=== PATIENT | male | born 1940 | race Caucasian/White ===

== ENCOUNTER → 2016-07-03 16:23 | Outpatient (CLI) | payer MEDICARE | END | disposition home or self-care (01) | LOC: D.LABREF 16:23 | DX: D50.9 Iron deficiency anemia, unspecified (principal) ==

== ENCOUNTER 2016-07-24 05:04 | Inpatient (IN) | payer MEDICARE ==
[2016-07-23 12:11] LABS: BASOPHILS 0.4 % (0-2); EOSINOPHILS 6.2 % (0-7); HEMATOCRIT 32.4 % (42.0-54.0); HEMOGLOBIN 9.9 g/dL (13.5-17.5); IMMATURE GRANULOCYTES 0.2 % (0-5); LYMPHOCYTES 21.3 % (15-50); MCH 26.5 pg (26.0-34.0); MCHC 30.6 g/dL (31.0-37.0); MCV 86.6 fL (80.0-100.0); MEAN PLATELET VOLUME 8.2 fL (7.4-10.4); MONOCYTES 6.6 % (2-11); NEUTROPHILS 65.3 % (40-80); PLATELET COUNT 198 10x3/uL (130-400); RBC 3.74 10x6/uL (4.20-6.10); RDW 17.8 % (11.5-14.5); WBC 5.6 10x3/uL (4.8-10.8)
[2016-07-23 12:23] LABS: INR 1.09 (0.85-1.17)
[2016-07-23 12:49] LABS: CALC OSMOLALITY 276 mosm/kg (275-300); CALCIUM 10.5 mg/dL (8.5-10.1); CHLORIDE - SERUM 105 mmol/L (98-107); CREATININE - SERUM 0.8 mg/dL (0.6-1.3); GLUCOSE 91 mg/dL (74-106); POTASSIUM - SERUM 4.3 mmol/L (3.5-5.1); SODIUM 140 mmol/L (136-145); UREA NITROGEN 7 mg/dL (7-18); eGFR NON AFRICAN AMERICAN > 90 mL/min (90-120)
[~2016-07-24] VITALS: Ht 175.3 cm; Wt 92.5 kg
[2016-07-24] VITALS (12 sets, daily range): BP systolic 105–148; BP diastolic 62–91; BMI 30.3; BMI 30.2
--- NOTE | ~2016-07-24 | DS ---
PATIENT:FE PERDOMO :38 MEDICAL RECORD: [id number] DISCHARGE SUMMARY ADMISSION DATE: 07/24/16 DISCHARGE DATE: 07/27/16 DATE OF ADMISSION: 07/24/2016 DATE OF DISCHARGE: 07/27/2016 ADMISSION DIAGNOSES: 1. Ascending colon cancer with mets to intra-abdominal lymph nodes. 2. Hypertension. 3. Iron deficiency anemia due to chronic blood loss. DISCHARGE DIAGNOSES: 1. Ascending colon cancer with mets to intra-abdominal lymph nodes. 2. Hypertension. 3. Iron deficiency anemia due to chronic blood loss. PROCEDURE: Hand-assisted laparoscopic right hemicolectomy on 07/24/2016. CONSULTATIONS: None. REPORT OF HOSPITALIZATION: The patient was admitted to hospital after a successful hand-assisted laparoscopic right hemicolectomy. At the time of surgery, the patient was noted to have enlarged lymph nodes and these were removed with the specimen. The patient had a normal postoperative course with no complications. He was eventually able to advance through his diet. At the day of discharge, he was having normal bowel function and was tolerating diet without nausea or vomiting. His incisions were healing well with no signs of erythema and he had no signs of any infection or sepsis. At that point, his pathology report came back showing he had invasive adenocarcinoma of the right colon with 7 of 11 lymph nodes positive for metastatic disease. DISCHARGE INSTRUCTIONS: He will return to clinic or call with any questions or concerns, fevers, chills, nausea, vomiting or worsening abdominal pain. ACTIVITIES: No heavy lifting or straining for 6 weeks postoperatively. FOLLOWUP: In clinic with me in 7-10 days. DISCHARGE MEDICATIONS: Resume home medications with the inclusion of Percocet 10. TRANSINT:[id number] Voice Confirmation ID: [id number] DOCUMENT ID: [id number] RAMO BRADLEY MD CC: [id number] DICTATION DATE: 07/27/16 1104 [employer] PRINTING MACHINIST: 07/28/16 0219 DIS IN 07/27/16 [facility] [address] [place] [id number]
[~2016-07-24 05:04] MED LIST: AMBIEN5 MG PO; CENTRUM SILVER1 TA1 PO; FLOMAX0.4 MG PO; HYZAAR 50-12.51 TAB PO; PERCOCET 10/3251 TA1 PO; XANAX0.5 MG PO; XARELTO20 MG PO; ZESTRIL20 MG PO
[2016-07-24] MEDS ORDERED: ZESTRIL20 MG PO (06:51)
[2016-07-24] MEDS ORDERED: VITAMIN C1000 MG PO (06:52)
[2016-07-24] MEDS ORDERED: BUSPAR5 MG PO (06:53)
[2016-07-24] MEDS ORDERED: FERROUS SULFAT325 MG PO (06:53)
[2016-07-24] MEDS ORDERED: ZOCOR80 MG PO (06:54)
--- NOTE | 2016-07-24 12:50 | NUR ---
PATIENT RESTING QUIETLY. FAMILY IN ROOM.
--- NOTE | 2016-07-24 14:52 | OP ---
PATIENT NAME: FE PERDOMO MEDICAL RECORD: [id number] :38 LOCATION:D.[facility] [id number] ADMISSION DATE:07/24/16 SURGEON: CHARLES BRADLEY MD DATE OF OPERATION: 07/24/2016 PREOPERATIVE DIAGNOSES: 1. Adenocarcinoma of the ascending colon. 2. Iron deficiency anemia. 3. Hypertension. 4. Cardiac arrhythmia with pacemaker in situ. POSTOPERATIVE DIAGNOSES: 1. Adenocarcinoma of the ascending colon. 2. Iron deficiency anemia. 3. Hypertension. 4. Cardiac arrhythmia with pacemaker in situ. PROCEDURE: Hand-assisted laparoscopic right hemicolectomy. SURGEON: Charles Bradley MD. REPORT OF PROCEDURE: The patient's abdomen was prepped and draped in sterile fashion. A cut down was made around the patient's umbilicus and electrocautery was used to dissect through the subcutaneous tissue and into the abdominal cavity. Once in the abdomen, a GelPort was inserted with a 5-mm trocar within it. After insufflation was obtained, then a 5-mm trocar was placed in the epigastrium and another 5-mm trocar was placed in the right subcostal region, both under direct visualization. At this point, we began to palpate the patient's abdomen. I saw no sign of any metastatic lesions throughout the abdominal cavity including the patient's liver and abdominal wall. There were some enlarged lymph nodes present in the right mesocolon. We began our dissection of the white line of Toldt. We took down this white line of Toldt and began to mobilize the colon medially. The colon mass was easily palpable in the right colon. We took down the patient's hepatic flexure and at this point, we had good mobilization of the colon. We then eviscerated the colon out of the wound protector. The distal ileum was transected with a 55 blue load LUDIN stapler and the proximal transverse colon was transected with a 55 blue load LUDIN stapler. We then took down the mesentery with sequential clamp and tie technique using 3-0 silk ties. This incorporated the enlarged lymph nodes which were easily palpable. Once the specimen was completely removed, it was sent off for permanent to the pathology department. A [id number] anastomosis was performed using a 55 blue load LUDIN stapler. The opening of the transverse colon and ileum was then closed with a 30 blue load TA stapler. We then oversewed the staple line using Lemberted 3-0 silk pop-offs. This anastomosis was placed back into the abdominal cavity. We then irrigated out the abdomen thoroughly with normal saline and assured there was no sign of any active bleeding. At this point, the ports and insufflation were then removed. The midline fascia was closed with running #1 loop PDS times 2. The subcutaneous tissues were then irrigated out thoroughly and reapproximated with interrupted 3-0 Vicryl. All the skin incisions were closed with skin laith and dressed appropriately. COMPLICATIONS: None. CONDITION: Stable. OPERATIVE REPORT [id number] FE PERDOMO ANESTHESIA: General endotracheal. BLOOD LOSS: 30 mL. TRANSINT:[id number] Voice Confirmation ID: [id number] DOCUMENT ID: [id number] CHARLES BRADLEY MD at 1452 CC: YURI VERONICA MD and NIKHIL ZHENG MD [id number] DICTATION DATE: 07/24/16 0935 AIRLINE MANAGER: 07/24/16 1015 ADM IN [facility] [address] [place] [address]
--- NOTE | 2016-07-24 19:00 | NUR ---
PATIENT SUPINE IN BED. HOB 20 DEGREES. AAOX4. RR EVEN AND UNLABORED. 0 S/S OF DISTRESS. STATES PAIN IS A 3/10. IV TO LEFT FA PATENT WITH NO REDNESS OR SWELLING. BANDAIDS TO ABD CDI. HOLT SECURED WITH STATLOCK AND DRAINING TO GRAVITY. SCD'S ON. B/A ON. GIRLFRIEND AT BEDSIDE. SRX2. BED LOW. CALL LIGHT WITHIN REACH.
--- NOTE | 2016-07-24 19:00 | NUR ---
PATIENT IN BED WATCHING TV. AAOX4. RR EVEN AND UNLABORED. 0 S/S OF DISTRESS STATES PAIN IS A 3/10. IV TO LEFT FA PATENT WITH NO REDNESS OR SWELLING. DRESSING AND BANDAIDS TO ABD CDI. SCD'S IN ROOM BUT OFF. SRX2. BED LOW. CALL LIGHT WITHIN REACH.
--- NOTE | 2016-07-24 21:50 | NUR ---
NIGHTTIME MEDS GIVEN. PATIENT DENIES NEEDS AT THIS TIME.
--- NOTE | 2016-07-25 03:55 | NUR ---
PATIENT SLEEPING WITH HOME CPAP ON.
[2016-07-25 04:00] VITALS: BP 146/107
[2016-07-25 06:10] LABS: BASOPHILS 0.2 % (0-2); EOSINOPHILS 1.1 % (0-7); HEMATOCRIT 30.2 % (42.0-54.0); HEMOGLOBIN 9.2 g/dL (13.5-17.5); IMMATURE GRANULOCYTES 0.2 % (0-5); LYMPHOCYTES 16.1 % (15-50); MCH 26.4 pg (26.0-34.0); MCHC 30.5 g/dL (31.0-37.0); MCV 86.5 fL (80.0-100.0); MEAN PLATELET VOLUME 9.4 fL (7.4-10.4); MONOCYTES 7.3 % (2-11); NEUTROPHILS 75.1 % (40-80); PLATELET COUNT 236 10x3/uL (130-400); RBC 3.49 10x6/uL (4.20-6.10); RDW 17.2 % (11.5-14.5); WBC 6.5 10x3/uL (4.8-10.8)
--- NOTE | 2016-07-25 06:17 | NUR ---
PATIENT AWAKE IN BED. STATES THAT HIS "PAIN IS FINE WHEN HE IS NOT MOVING." ALSO HE HAS "BELCHED A COUPLE OF TIMES, BUT NOT PASSED GAS." NO NEEDS AT THIS TIME.
[2016-07-25 06:31] LABS: CALC OSMOLALITY 273 mosm/kg (275-300); CALCIUM 10.2 mg/dL (8.5-10.1); CARBON DIOXIDE 27.6 mmol/L (21.0-32.0); CHLORIDE - SERUM 106 mmol/L (98-107); CREATININE - SERUM 0.8 mg/dL (0.6-1.3); GLUCOSE 94 mg/dL (74-106); POTASSIUM - SERUM 4.1 mmol/L (3.5-5.1); SODIUM 138 mmol/L (136-145); UREA NITROGEN 6 mg/dL (7-18); eGFR NON AFRICAN AMERICAN > 90 mL/min (90-120)
--- NOTE | 2016-07-25 08:30 | NUR ---
DENIES NEEDS, ASSESSMENT COMPLETE, BED LOWEST POSITION, HOLT DC'D PER ORDER, MINIMAL DISCOMFORT, URNIAL AT BEDSIDE, CALL LIGHT IN REACH, WILL CONTINUE TO MONITOR
[2016-07-25 08:57] VITALS: BP 144/81
[2016-07-25 12:00] VITALS: BP 153/87
--- NOTE | 2016-07-25 12:45 | NUR ---
SITTING UP IN BED RELAXED. REPORTED JUST VOIDED 100cc CLEAR YELLOW URINE. DENIES NEEDS. NO C/O AT THIS THIS TIME. FAMILY IN ROOM.
[2016-07-25 13:19] VITALS: Ht 175.3 cm; Wt 92.5 kg
--- NOTE | 2016-07-25 15:31 | NUR ---
Patient Name: FE PERDOMO Admission Status: Elective Accout number: [id number] Admission Date: 07-24-2016 : 1940 Admission Diagnosis:MALIGNANT NEOPLASM OF ASCENDING COLON Attending: ROMY Current LOS: 1 Anticipated DC Date: 07-30-2016 Planned Disposition: Home Primary Insurance: [employer] ADV Discharge Planning Comments: CM MET WITH PATIENT REGARDING D/C PLANS AND NEEDS. PATIENT STATED HE LIVES WITH HIS GIRLFRIEND (KRYSTINA) AND SHE WILL BE THE ONE TO DRIVE HIM HOME AT DISCHARGE. PATIENT STATED HE IS INDEPENDENT AND HAS A WALKER AND C-PAP AT HOME. PATIENTS PCP IS DR. VERONICA AND PHARMACY IS [facility] [address]. PATIENT DENIES NEEDS FOR HOME HEALTH AT DISCHARGE AT THIS TIME. CM WILL CONTINUE TO FOLLOW PATIENT WITH D/C NEEDS AND PLANS. PCP [facility] [address]- [phone] KRYSTINA LINCOLN () [phone] Ham Curer: Lianna Guerrero Is the patient Alert and Oriented? Yes 0 * How many steps to enter\exit or inside your home? 0 0 * PCP DR. VERONICA 0 * Pharmacy [facility] [address] 0 * Preadmission Environment Home with Family 0 * ADLs Independent 0 * Equipment CPAP Walker 0 * List name and contact numbers for known caregivers / representatives who currently or will assist patient after discharge: KRYSTINA LINCOLN [phone] * Community resources currently utilized None 0 * Additional services required to return to the preadmission environment? Yes 0 * Can the patient safely return to the preadmission environment? Yes 0 * Has this patient been hospitalized within the prior 30 days at any hospital? No 0 Grand Total: 0
[2016-07-25 17:12] VITALS: BP 146/92
--- NOTE | 2016-07-25 19:30 | NUR ---
PATIENT SPILLED HIS URINAL A SMALL AMOUNT. ASSISTED PATIENT TO BATHROOM WHERE HE BATHED OFF WITH BATH WIPES. LINENS AND GOWN CHANGED. PATIENT NOW BACK IN BED.
[2016-07-25 20:02] VITALS: BP 141/91
--- NOTE | 2016-07-25 21:50 | NUR ---
NIGHTTIME MEDS GIVEN. PATIENT CONCERNED WITH BP BECAUSE HE HASN'T HAD HIS MEDICATION. BP 141/91. ENALOPRIL TO BE GIVEN FOR SYSTOLIC OF >150. EXPLAINED THIS TO PATIENT AND INFORMED HIM THAT I WOULD PASS ON HIS CONCERNS ABOUT HIS BP MEDS TO BE ADDRESSED BY PHYSICIAN IN AM.
--- NOTE | 2016-07-25 23:18 | NUR ---
PATIENT SLEEPING WITH CPAP ON. CALL LIGHT WITHIN REACH.
[2016-07-25 23:48] VITALS: BP 103/60
[2016-07-26 04:00] VITALS: BP 146/83
[2016-07-26 05:28] LABS: BASOPHILS 0.4 % (0-2); EOSINOPHILS 2.9 % (0-7); HEMOGLOBIN 9.5 g/dL (13.5-17.5); IMMATURE GRANULOCYTES 0.4 % (0-5); LYMPHOCYTES 20.2 % (15-50); MCH 25.5 pg (26.0-34.0); MCHC 29.7 g/dL (31.0-37.0); MEAN PLATELET VOLUME 9.3 fL (7.4-10.4); MONOCYTES 9.3 % (2-11); NEUTROPHILS 66.8 % (40-80); PLATELET COUNT 228 10x3/uL (130-400); RBC 3.72 10x6/uL (4.20-6.10); RDW 16.7 % (11.5-14.5); WBC 4.8 10x3/uL (4.8-10.8)
--- NOTE | 2016-07-26 05:32 | NUR ---
PATIENT STILL SLEEPING WITH NO DISTRESS NOTED. MORNING MEDS GIVEN.
[2016-07-26 05:45] LABS: CALC OSMOLALITY 272 mosm/kg (275-300); CALCIUM 10.7 mg/dL (8.5-10.1); CARBON DIOXIDE 28.6 mmol/L (21.0-32.0); CHLORIDE - SERUM 106 mmol/L (98-107); CREATININE - SERUM 0.9 mg/dL (0.6-1.3); GLUCOSE 88 mg/dL (74-106); POTASSIUM - SERUM 4.4 mmol/L (3.5-5.1); SODIUM 138 mmol/L (136-145); UREA NITROGEN 8 mg/dL (7-18); eGFR NON AFRICAN AMERICAN 87 mL/min (90-120)
--- NOTE | 2016-07-26 07:30 | NUR ---
AWAKE, DENIES NEEDS, PEGGER DOBBY LOOMS DC'D, BED LOWEST POSITION, CALL LIGHT IN REACH, WILL CONTINUE TO MONITOR
[2016-07-26 08:21] VITALS: BP 139/93
[2016-07-26 12:46] VITALS: BP 141/82
[2016-07-26 16:47] VITALS: BP 146/87
[2016-07-26 20:00] VITALS: BP 125/84
[2016-07-27] VITALS: BP 113/75
--- NOTE | 2016-07-27 01:19 | NUR ---
ASSESSED AT THE BEGINNING OF THE SHIFT. PT IS ALERT AND ORIENTED, ABLE TO VERBALIZE NEEDS. HIS ABD HAS A SMALL LOWER MIDLINE AND 2 OTHER LAP SITES. ALL ARE CLEAN, DRY WITH NO DRAINAGE OR DRESSINGS. HE IS USING CAP AT NIGHT AND IS ON ORAL PAIN MEDS FOR PAIN WHICH SEEM TO BE WORKING.
[2016-07-27 04:00] VITALS: BP 124/80
[2016-07-27 05:21] LABS: BASOPHILS 0.2 % (0-2); EOSINOPHILS 5.7 % (0-7); HEMATOCRIT 30.4 % (42.0-54.0); HEMOGLOBIN 9.2 g/dL (13.5-17.5); IMMATURE GRANULOCYTES 0.4 % (0-5); LYMPHOCYTES 16.9 % (15-50); MCH 25.7 pg (26.0-34.0); MCHC 30.3 g/dL (31.0-37.0); MCV 84.9 fL (80.0-100.0); MEAN PLATELET VOLUME 8.9 fL (7.4-10.4); MONOCYTES 6.8 % (2-11); PLATELET COUNT 196 10x3/uL (130-400); RBC 3.58 10x6/uL (4.20-6.10); RDW 16.7 % (11.5-14.5); WBC 4.7 10x3/uL (4.8-10.8)
[2016-07-27 05:37] LABS: CALC OSMOLALITY 276 mosm/kg (275-300); CALCIUM 10.6 mg/dL (8.5-10.1); CHLORIDE - SERUM 106 mmol/L (98-107); CREATININE - SERUM 0.9 mg/dL (0.6-1.3); GLUCOSE 106 mg/dL (74-106); SODIUM 139 mmol/L (136-145); eGFR NON AFRICAN AMERICAN 87 mL/min (90-120)
[2016-07-27 05:41] LABS: UREA NITROGEN 11 mg/dL (7-18)
--- NOTE | 2016-07-27 07:30 | NUR ---
AWAKE AND ALERT. ORIENTED X3. NO C/O AT THIS TIME. LUNGS ARE CLEAR BILATERALLY, NO COUGH NOTED. SKIN IS INTACT WITHOUT REDNESS EXCEPT 2 SMALL INSERTION SITES TO ABDOMEN WHICH ARE CLEAN AND DRY WITH CLIPS INTACT. SL TO LEFT FOREARM IS PATENT WITHOUT REDNESS AT INSERTION SITE. DENIES NEEDS.
[2016-07-27 08:05] VITALS: BP 123/90
[2016-07-27] MEDS ORDERED: PERCOCET 10/3251 TA1 PO (08:06)
--- NOTE | 2016-07-27 09:00 | NUR ---
ATE ALMOST ALL OF BREAKFAST. ANXIOUS TO BE DISCHARGED HOME. ORDERS RECEIVED.
--- NOTE | 2016-07-27 10:00 | NUR ---
DISCHARGED TO HOME WITH FAMILY AMBULATORY. DISCHARGE INSTRUCTIONS GIVEN BOTH VERBALLY AND WRITTEN. ALL QUESTIONS ANSWERED. PATIENT VERBALIZED UNDERSTANDING OF SAME. NEEDED PRESCRIPTIONS GIVEN TO PATIENT.
== END 2016-07-27 10:00 | disposition home or self-care (01) | DRG 330 ==
LOC: D.MS 05:04 → D.SDCHOLD 05:04 → D.MS 09:45
PROVIDERS: ADMIT Surgery
PROC: 0DTF0ZZ Resection of Right Large Intestine, Open Approach (ICD-10-PCS; principal; 2016-07-24 07:30)
DX: C18.2 Malignant neoplasm of ascending colon (principal); C77.2 Secondary and unspecified malignant neoplasm of intra-abdominal lymph nodes; D50.9 Iron deficiency anemia, unspecified; I10 Essential (primary) hypertension; I49.9 Cardiac arrhythmia, unspecified; Z95.0 Presence of cardiac pacemaker

== ENCOUNTER → 2016-09-14 06:21 | Day surgery (SDC) | payer MEDICARE ==
[~2016-09-14] VITALS: Ht 175.3 cm; Wt 83.5 kg
--- NOTE | ~2016-09-14 | OP ---
PATIENT NAME: FE PERDOMO MEDICAL RECORD: [id number] :38 LOCATION:D.OPS ADMISSION DATE: SURGEON: RAMO BRADLEY MD DATE OF OPERATION: 09/14/2016 PREOPERATIVE DIAGNOSES: 1. Metastatic colon cancer. 2. Hypertension. 3. Coronary artery disease. POSTOPERATIVE DIAGNOSES: 1. Metastatic colon cancer. 2. Hypertension. 3. Coronary artery disease. PROCEDURE: 1. Right subclavian vein port placement. 2. Fluoroscopic interpretation. SURGEON: Ramo Bradley MD REPORT OF PROCEDURE: The patient's chest was prepped and draped in sterile fashion. A needle was used to cannulate the right subclavian vein. The guidewire was advanced with ease. Fluoro was used to note that the wire was in good position in the venous system. A skin incision was made on the right lateral chest and a subcutaneous pouch was made overlying the pectoral fascia. The catheter was tunneled between this pouch and the wire exit site. The port was sutured to the pectoral fascia using interrupted 4-0 Prolenes times 2. The catheter was cut with a beveled tip at 22 cm. The dilator trocar device was placed over the wire and the wire and dilator were removed. The catheter tip was advanced through the trocar and the trocar was removed. The catheter tip resting in good position at the right atrial superior vena caval junction. The catheter aspirated nonpulsatile dark blood and flushed easily with heparinized saline. The subcutaneous tissues were reapproximated with interrupted 3-0 Vicryls and the skin was closed with running subcutaneous 5-0 Monocryl. COMPLICATIONS: None. CONDITION: Stable. ANESTHESIA: General endotracheal. BLOOD LOSS: Minimal. TRANSINT:[id number] Voice Confirmation ID: [id number] DOCUMENT ID: [id number] RAMO BRADLEY MD CC: YURI VERONICA MD [id number] DICTATION DATE: 09/14/16 1013 CONTINUOUS STILL OPERATOR: 09/14/16 1817 [facility] [address] [place] [address]
[~2016-09-14 06:21] MED LIST changes: +BUSPAR5 MG PO; +FERROUS SULFAT325 MG PO; +LOVENOX30 MG/0.3 SC; +VITAMIN C1000 MG PO; +ZOCOR80 MG PO
[2016-09-14 07:15] LABS: BASOPHILS 0.2 % (0-2); EOSINOPHILS 2.4 % (0-7); HEMATOCRIT 38.2 % (42.0-54.0); HEMOGLOBIN 11.8 g/dL (13.5-17.5); IMMATURE GRANULOCYTES 0.2 % (0-5); LYMPHOCYTES 26.1 % (15-50); MCHC 30.9 g/dL (31.0-37.0); MCV 90.7 fL (80.0-100.0); MEAN PLATELET VOLUME 9.3 fL (7.4-10.4); MONOCYTES 7.5 % (2-11); NEUTROPHILS 63.6 % (40-80); RBC 4.21 10x6/uL (4.20-6.10); RDW 16.7 % (11.5-14.5); WBC 4.9 10x3/uL (4.8-10.8)
[2016-09-14 07:18] LABS: PLATELET COUNT 154 10x3/uL (130-400)
[2016-09-14 07:21] VITALS: BP 144/96; Ht 175.3 cm; Wt 83.5 kg
[2016-09-14 07:22] LABS: INR 1.08 (0.85-1.17); PROTIME 13.8 SECONDS (11.6-15.0)
[2016-09-14 07:23] LABS: APTT 45.4 SECONDS (22.8-39.4)
--- NOTE | 2016-09-14 11:06 | NUR ---
1045-RECD TO ROOM. ALERT. IV PATENT L-AC. DRESSING TO R UPPER CHEST DRY AND INTACT. DENIES PAIN/NAUSEA. FULL NLIQUIDS SERVED.
--- NOTE | 2016-09-14 12:24 | NUR ---
1215-Pt escorted out by real estate legal secretary
== END | disposition home or self-care (01) ==
LOC: D.OPS 06:21 → D.PAN 08:15 → D.OPS 08:15 → D.PAN 08:30
PROVIDERS: Anesthesiology
DX: C18.9 Malignant neoplasm of colon, unspecified (principal); C79.9 Secondary malignant neoplasm of unspecified site; I10 Essential (primary) hypertension; I25.10 Atherosclerotic heart disease of native coronary artery without angina pectoris; Z01.812 Encounter for preprocedural laboratory examination

== ENCOUNTER → 2016-11-27 07:40 | Outpatient (CLI) | payer MEDICARE ==
[2016-09-14 07:21] VITALS: BMI 27.2
== END | disposition home or self-care (01) ==
LOC: D.NM 11-21 08:30
DX: C18.2 Malignant neoplasm of ascending colon (principal)

== ENCOUNTER 2018-05-15 11:59 | Outpatient (CLI) | payer OTHER ==
[~2018-05-15] VITALS: Ht 175.3 cm; Wt 82.7 kg
--- NOTE | ~2018-05-15 | HEMODYNAMI ---
PATIENT:FE PERDOMO MEDICAL RECORD: [id number] : 38 LOCATION:D.CAT ADMISSION DATE: 05/15/18 Generatedon:05/15/201815:05 Patient name: FE PERDOMO Patient #: [id number] SSN: : 1940 Date of study: 05/15/2018 Page: Of Hemodynamic Procedure Report Patient Data Patient Demographics Procedure consent was obtained First Name: FE Gender: Male Last Name: CONOR : 1940 Patient #: [id number] Age: 78 year(s) Race: Unknown Additional ID: [id number] Contact details [address]: [address] [place] [address] State: [place] City: [place] Zip code: [address] Admission Admission Data Admission Date: 05/15/2018 Admission Time: 11:59 Procedure Procedure Types Cath Procedure Diagnostic Procedure PPM/ICD PPM Generator Exg. Single Procedure Description Procedure Date Procedure Date: 05/15/2018 Procedure Start Time: 14:51 Procedure End Time: 15:04 Procedure Staff Name Function Zaire Vick MD Performing Physician Judson Edwards RT Monitor Angy Salinas RT Scrub Joel Casey RN Land Management Forester Charles Oconnell MD Assisting physician Marilee Hammonds RN Nurse Procedure Data Procedure Complications No complications Procedure Medications Medication Administration Route Dosage 0.9% NaCl I.V. 10 ml/hr Oxygen etCO2 Nasal cannula 2 l/min Lidocaine 2% added to field 20 Ancef (1Gm/50ml NS) I.V.P.B 1 g Ancef Irrigation Topical 1 g (1gm/500ml NS) Versed I.V. 2 mg Fentanyl I.V. 100 mcg Versed I.V. 2 mg Fentanyl I.V. 25 mcg Hemodynamics Rest Heart Rate: 65 (bpm) Snapshots Pre Cath Intra NCS Post Cath Vital Signs Time Heart Resp SPO2 etCO2 NIBP (mmHg) Rhythm Pain Sedation Rate (ipm) (%) (mmHg) Status Level (bpm) 14:33:15 67 18 98 28.5 164/110(150) NSR 0 (11) 10(A) , No pain 14:37:33 67 17 98 34.5 140/104(125) NSR 0 (11) 10(A) , No pain 14:41:47 67 18 98 30 141/106(120) NSR 0 (11) 10(A) , No pain 14:46:01 96 15 99 28.2 150/115(133) NSR 0 (11) 10(A) , No pain 14:50:17 60 15 97 21.8 135/103(128) NSR 0 (11) 10(A) , No pain 14:54:33 59 14 97 20 135/87(100) NSR 0 (11) 9(A) , No pain 14:58:45 60 16 98 29.7 115/81(92) NSR 0 (11) 10(A) , No pain 15:02:55 60 14 95 10.5 130/81(115) NSR 0 (11) 10(A) , No pain Medications Time Medication Route Dose Verified Delivered Reason Notes Effecti veness by by 14:33:54 0.9% NaCl I.V. 10 Buddhist Marilee used for ml/hr Kourtney Hammonds electrician shop 14:34:04 Oxygen etCO2 2 Charles Archeryla used for Nasal l/min Kourtney Hammonds procedure cannula RN 14:34:10 Lidocaine added 20ml Buddhist Buddhist for local 2% to vial Kourtney Oconnell MD anesthetic field 14:34:23 Ancef I.V.P.B 1 g Buddhist Marilee Per (1Gm/50ml Kourtney Hammonds physician NS) RN 14:34:30 Ancef Topical 1 g Buddhist Buddhist used for Irrigation Kourtney Oconnell MD procedure (1gm/500ml NS) 14:44:08 Fentanyl I.V. 100 Buddhist Marilee for mcg Kourtney Hammonds sedation RN 14:44:59 Versed I.V. 2 mg Buddhist Marilee for Kourtney Hammonds sedation RN 14:50:40 Versed I.V. 2 mg Buddhist Marilee for Kourtney Hammonds sedation RN 14:50:46 Fentanyl I.V. 25 Buddhist Marilee for mcg Kourtney Hammonds sedation sod cutter Log Time Note 14:19:18 Signed procedure consent form obtained from patient. 14:19:19 Diagnostic Cath status Elective 14:19:20 Time tracking: Regular hours (M-F 7:00 - 5:00) 14:19:23 Joel Casey RN sent for patient. Start room use. 14:19:27 Plan of Care:Hemodynamics will remain stable., Cardiac rhythm will remain stable., Comfort level will be maintained., Respiratory function will remain adequate., Patient/ family verbilizes understanding of procedure., Procedure tolerated without complication., Recovers from procedure without complications.. 14:32:02 Vital chart was started 14:33:54 0.9% NaCl 10 ml/hr I.V. was administered by Marilee Hammonds RN; used for procedure; 14:34:04 Oxygen 2 l/min etCO2 Nasal cannula was administered by Marilee Hammonds RN; used for procedure; 14:34:10 Lidocaine 2% 20ml vial added to field was administered by Charles Oconnell MD; for local anesthetic; 14:34:23 Ancef (1Gm/50ml NS) 1 g I.V.P.B was administered by Marilee Hammonds RN; Per physician; 14:34:30 Ancef Irrigation (1gm/500ml NS) 1 g Topical was administered by Charles Oconnell MD; used for procedure; 14:35:43 Patient received from Pre/Post Procedure Room to CCL 3 Alert and oriented. Tansferred to table in Supine position. 14:35:44 Warm blankets applied, and heriberto hugger turned on for patient comfort. 14:35:45 Correct patient and procedure confirmed by team. 14:35:46 Baseline sample Acquired. 14:35:52 Rhythm: paced 14:35:53 Full Disclosure recording started 14:37:59 H&P Date Dictated: 05/15/2018 Within 30 days and on chart.. 14:37:59 Pre-procedure instructions explained to patient. 14:38:00 Pre-op teaching completed and patient verbalized understanding. 14:38:02 Family in patients room. 14:38:04 Patient NPO since Midnight. 14:38:14 Is the patient allergic to Iodine/contrast media? No. 14:38:15 Was the patient premedicated? No 14:38:39 Is patient on blood thinner?Yes 14:38:45 ACC The patient was administered the following blood thiners within the last 24 hours: Xarelto 14:38:47 Patient diabetic? No. 14:38:48 ----Pre-sedation anethsthesia assessment.---- 14:38:50 Previous problem with sedation/anesthesia? No ? 14:38:51 Snore? Yes 14:38:52 Sleep apnea? Yes 14:38:54 Deviated septum? No 14:38:55 Opens mouth fully? Yes 14:38:56 Sticks out tongue? Yes 14:38:59 Airway obstruction? No ? 14:39:04 Dentures? Yes in tight 14:39:13 Pre procedure: right dorsailis pedis pulse 1+ Palpable, but thready & weak; easily obliterated 14:39:17 Patient pain scale 0/10 ?. 14:39:23 IV patent on arrival in left antecubital with 0.9% NaCl at 10ml/hr. 14:39:26 Lab results completed and on chart. 14:39:31 Left chest area was prepped with chlora-prep and draped in sterile fashion 14:39:33 Alarms reviewed by R. N. 14:39:33 Sharps counted by scrub and verified by R.N. 14:39:35 Physician arrived 14:40:18 Medtronic Adapta PPM Single Generator [id number] opened to sterile field. 14:40:41 3-0 Vicryl Multipack [id number] opened to sterile field. 14:40:41 5-0 Monocryl PS3 [id number] opened to sterile field. 14:40:41 2-0 Ticron Multipack ([id number]) opened to sterile field. 14:43:11 --------ALL STOP TIME OUT------ 14:43:12 Final Timeout: patient, procedure, and site verified with staff and physician. All members of the team are in agreement. 14:43:17 Left chest site verified by team. 14:43:20 Fire Safety Assessment: A--An alcohol-based skin anteseptic being used preoperatively., C--Open oxygen or nitrous oxide is being used., D--An ESU, laser, or fiber-optic light is being used. 14:43:26 Physical assessment completed. ASA score P 2 - A patient with mild systemic disease as per Charles Oconnell MD. 14:43:32 Sedation plan: IV Moderate Sedation Medication:Versed, Fentanyl 14:44:08 Fentanyl 100 mcg I.V. was administered by Marilee Hammonds RN; for sedation; 14:44:59 Versed 2 mg I.V. was administered by Marilee Hammonds RN; for sedation; 14:45:16 Procedure started. 14:46:47 Local anesthetic to Chest area with Lidocaine 1% w/epi by Charles Oconnell MD.INITIAL ACCESS ONLY 14:50:40 Versed 2 mg I.V. was administered by Marilee Hammonds RN; for sedation; 14:50:46 Fentanyl 25 mcg I.V. was administered by Marilee Hammonds RN; for sedation; 14:51:00 [employer] sales service representative isrrael richmond present for procedure. 14:51:30 Pre sharps counted by scrub and verified by RN: Sutures: 13; Sponges: 5; Stick needles: 2; Skin needles: 2; Blade: 1; Cautery: 1 14:51:33 Grounding pad site Left thigh. 14:51:37 Grounding pad site free from injury. 14:51:44 Lidocaine 1% w/epi was administered to left subclavicular area by Charles Oconnell MD . 14:51:47 Incision made to left subclavicular area. 14:51:49 Generator pocket made/opened. 14:55:52 PPM Single was removed.. 14:55:58 PPM Single was attached to lead(s) and inserted into pocket. 14:56:08 Generator was sutured in place with 2-0 ticron. 14:56:50 Device pocket was irrigated with Ancef. 15:00:32 Subcutaneous closure was completed with 3-0 vicryl. 15:01:15 Skin closure was completed with 5-0 monocryl. 15:02:23 Parameters-- Generator: Mode: single. Lower Rate: 60bpm. Upper Rate: 120bpm. 15:02:50 Parameters--Ventricular P/R Wave: 2.9mV. Current: 1.75mA; Threshold: 725V; Impedence: 0.4OHMS. 15:02:56 Lt Chest incision was dressed with Mepilex dressing. 15:03:23 Procedure type changed to Cath procedure, Diagnostic procedure, PPM/ICD, PPM Generator Exg. Single 15:03:39 Procedure ended.(Physican Out) 15:03:52 Post Chest area:stable 15:03:55 Procedure and supply charges have been captured, reviewed, submitted and are correct. 15:04:01 Procedure Complication : No complications 15:04:29 Vital chart was stopped 15:04:29 See physician's report for complete and final results. 15:04:33 Report given to Pre/Post Procedure Room. 15:04:36 Patient transfered to Pre/Post Procedure Room with Stretcher. 15:04:38 Procedure ended. 15:04:38 Full Disclosure recording stopped 15:04:41 End room use (Document Last) Device Usage Item Name Manufacture Quantity Catalog Hospital Part Current Minimal Lot# / Number Charge Number Stock Stock Serial# Code Medtronic Medtronic 1 [id number] 5 Adapta PPM Single Generator [id number] 3-0 Vicryl Ethicon 1 [id number] 5 Multipack [id number] 5-0 Monocryl Ethicon 1 [id number] [id number] 5 PS3 [id number] 2-0 Ticron Ethicon 9 [id number] [id number] 5 Multipack ([id number]) Signature Audit [place] Stage Time Signature Unsigned Intra-Procedure 05/15/2018 Judson Edwards RT(R) 3:05:20 PM Signatures Monitor : Judson Edwards RT Signature : Date : Time : [facility] [address] [facility] [place] [address]
[2018-05-15] MEDS ORDERED: NORVASC5 MG PO (12:35)
[2018-05-15 12:51] VITALS: BP 146/94; Ht 175.3 cm; Wt 82.7 kg
[2018-05-15 12:59] LABS: HEMATOCRIT 42.5 % (42.0-54.0); HEMOGLOBIN 13.9 g/dL (13.5-17.5); MCH 31.9 pg (26.0-34.0); MCHC 32.7 g/dL (31.0-37.0); MCV 97.5 fL (80.0-100.0); MEAN PLATELET VOLUME 9.4 fL (7.4-10.4); RBC 4.36 10x6/uL (4.20-6.10); RDW 14.3 % (11.5-14.5); WBC 4.8 10x3/uL (4.8-10.8)
[2018-05-15 13:11] LABS: CALC OSMOLALITY 284 mosm/kg (275-300); CALCIUM 10.4 mg/dL (8.5-10.1); CARBON DIOXIDE 27.8 mmol/L (21.0-32.0); CHLORIDE - SERUM 107 mmol/L (98-107); CREATININE - SERUM 0.7 mg/dL (0.6-1.3); GLUCOSE 106 mg/dL (74-106); POTASSIUM - SERUM 4.3 mmol/L (3.5-5.1); SODIUM 144 mmol/L (136-145); UREA NITROGEN 7 mg/dL (7-18); eGFR NON AFRICAN AMERICAN > 90 mL/min (90-120)
[2018-05-15 13:37] LABS: APTT 35.7 SECONDS (22.8-39.4); INR 1.12 (0.85-1.17); PROTIME 13.9 SECONDS (11.6-15.0)
[2018-05-15] MEDS ORDERED: HYDROCODON-ACE1 EA10 PO (15:03)
--- NOTE | 2018-05-15 15:53 | NUR ---
1545 PO FLUIDS AND SANDWICH SERVED. PT DENIES ANY C/O. DRESSING IS CDI. VSS, NEPHEW AT BEDSIDE, CALL LIGHT IN REACH. DR BRADLEY HAS ROUNDED ON PT.
--- NOTE | 2018-05-15 16:04 | NUR ---
PT ALERT, DENIES ANY INCISION SITE PAIN. DRESSING CDI. SANDWICH AND PO FLUIDS AT BEDSIDE. NEPHEW AT BEDSIDE.
--- NOTE | 2018-05-15 16:14 | NUR ---
PT VOIDED 400 CC CLEAR YELLOW URINE TO URINAL. DRESSING CDI, PT CHELLY SANDWICH WITH NO C/O NAUSEA.
--- NOTE | 2018-05-15 16:56 | NUR ---
1620 BP IS 157/118, HR IS 89. PT DENIES ANY C/O CHEST PAIN, STAETS HE ONLY TOOK ONE OF HIS BLOOD PRESSURE MEDICATIONS TODAY. DR GUY NOTIFIED AND ORDER RECEIVED FOR CLONIDINE 0.1MG PO X1.
--- NOTE | 2018-05-15 16:59 | NUR ---
1630 PT HAS RECEIVED CLONIDINE 0.1MG PO X1.
--- NOTE | 2018-05-15 18:07 | NUR ---
1640 PT HAD SMALL AMOUNT OF EMESIS. OFFERED ZOFRAN FOR THIS AND PT STATES NO FURTHER NAUSEA AT THIS TIME AND REFUSES MED. 1715 PT SITTING UP IN BED, VISITING WITH NEPHEW. SIPPING ON COLA,. HAS TOLERATED PO FLUIDS AND SMALL AMOUNT OF SANDWICH SINCE NAUSEA EARLIER. DENIES NEEDS AT THIS TIME. 1730 PT IS ALERT, DENIES ANY C/O AT THIS TIME, STATES WANTS TO GO HOME TO HIS RECLINER AND REQUESTS IV OUT AND DISCHARGE TO HOME. 1740 IV DC'D WITH CATH INTACT AND DC INSTRUCTIONS REVIEWED WITH PT. ASSISTED PT WITH DRESSING FOR DC TO HOME. 1745 ASSISTED PT TO THE BATHROOM, PT VOIDED QS, SAT IN WHEELCHAIR AND HAD NAUSEA AGAIN WITH SMALL AMOUNT OF EMESIS. STATED WE CAN GIVE MEDICATION FOR NAUSEA AND PT STATES 'I'M NOT STAYING HERE ANY LONGER, I WANT TO GO HOME TO MY OWN PLACE AND MY OWN CHAIR. WE WILL PROCEED FORWARD TO THE CAR, I AM NOT GOING BACK IN THAT ROOM.' ASKED ABOUT NAUSEA/ PAIN AND PT STATES NAUSEA RESOLVED WITH SMALL EMESIS. DENIES ANY C/O PAIN. DRESSING REMAINS CDI TO LEFT UPPER CHEST. PT ESCORTED TO PRIVATE AUTO VIA WC BY NURSE WITH NEPHEW DRIVING HIM HOME. PT HAS ALL PERSONAL BELONGINGS AND DC INSTRUCTIONS AT TIME OF DC TO HOME.
--- NOTE | 2018-05-22 09:41 | OP ---
PATIENT NAME: FE PERDOMO MEDICAL RECORD: [id number] :38 LOCATION:D.CAT ADMISSION DATE: SURGEON: RAMO BRADLEY MD DATE OF OPERATION: 05/15/2018 PREOPERATIVE DIAGNOSES: 1. End-of-life pacemaker generator. 2. Coronary artery disease. 3. Hypertension. 4. Metastatic colon cancer. POSTOPERATIVE DIAGNOSES: 1. End-of-life pacemaker generator. 2. Coronary artery disease. 3. Hypertension. 4. Metastatic colon cancer. PROCEDURE: Left subclavian vein single lead pacemaker generator exchange. SURGEON: Ramo Bradley MD REPORT OF PROCEDURE: The patient's left chest was prepped and draped in sterile fashion. A 20 mL of 1% lidocaine with epinephrine was infused into the surrounding tissues. A skin incision was made on the superior aspect of the indwelling pacemaker and electrocautery was used to dissect through the subcutaneous tissues to the pacemaker. The pacemaker was eviscerated through the wound, it was disconnected from the lead and a new pacemaker generator was inserted. This was placed into the subcutaneous pouch. The subcutaneous tissues were then reapproximated with interrupted 3-0 Vicryl and the skin was closed with running subcutaneous 5-0 Monocryl. COMPLICATIONS: None. CONDITION: Stable. ANESTHESIA: Local MAC. BLOOD LOSS: Minimal. TRANSINT:[id number] Voice Confirmation ID: [id number] DOCUMENT ID: [id number] RAMO BRADLEY MD at 0941 CC: EVELYNE GUY MD [id number] DICTATION DATE: 05/15/18 1507 [employer] SALES CONSULTANT: 05/15/18 2114 DEP CLI 05/15/[address] [address]
== END 2018-05-15 17:45 | disposition home or self-care (01) ==
LOC: D.CATH 11:59
PROVIDERS: Internal Medicine Interventional Cardiology
DX: Z45.010 Encounter for checking and testing of cardiac pacemaker pulse generator [battery] (principal); I25.10 Atherosclerotic heart disease of native coronary artery without angina pectoris; I10 Essential (primary) hypertension; C18.9 Malignant neoplasm of colon, unspecified; C79.9 Secondary malignant neoplasm of unspecified site; Z01.812 Encounter for preprocedural laboratory examination